=== PATIENT | male | born 1960 | race Caucasian/White ===

== ENCOUNTER 2017-04-22 20:42 | Emergency (ER) | payer OTHER ==
[~2017-04-22] VITALS: Ht 167.6 cm; Wt 140.6 kg
[~2017-04-22 20:42] MED LIST: ASPIRIN325; MECLIZINE 25 MG25 M1 PO
[2017-04-22 20:56] LABS: ABSOLUTE EOSINOPHILS 0.1 thou/uL (0.0-0.7); ABSOLUTE LYMPHOCYTES 1.6 thou/uL (0.8-5.3); ABSOLUTE MONOCYTES 0.8 thou/uL (0.0-1.2); ABSOLUTE NEUTROPHILS 5.4 thou/uL (1.6-8.1); BASOPHILS 0.6 %; EOSINOPHILS 1.1 %; HEMATOCRIT 45.5 % (42.0-52.0); HEMOGLOBIN 15.8 gm/dL (14.0-18.0); LYMPHOCYTES 20.2 %; MCHC 34.6 g/dL (28.0-37.0); MCV 89.7 fL (80.0-100.0); MONOCYTES 10.4 %; MPV 7.8 fl. (7.2-11.1); NUCLEATED RBCS 0 /100WBC; PLATELET COUNT* 199 thou/uL (150-400); POLYS 67.7 %; RBC 5.08 mil/uL (4.50-6.00); RDW-CV 14.6 % (10.5-14.5); WBC 7.9 thou/uL (4.0-11.0)
[2017-04-22 21:06] LABS: ANION GAP 8 mmol/L (7-16); BUN 14 mg/dL (7-18); CALCIUM 7.8 mg/dL (8.5-10.1); CHLORIDE 102 mmol/L (98-107); CO2 28 mmol/L (21-32); CREATININE 1.1 mg/dL (0.6-1.3); GLUCOSE 193 mg/dL (70-99); POTASSIUM 3.5 mmol/L (3.5-5.1); SODIUM 138 mmol/L (136-145)
[2017-04-22 21:16] LABS: ALBUMIN 3.2 g/dL (3.4-5.0); ALKALINE PHOSPHATASE 64 U/L (46-116); NT-PRO BRAIN NAT PEPTIDE 22 pg/mL (<300); SGOT 19 U/L (15-37); SGPT 31 U/L (30-65); TOTAL BILIRUBIN 0.5 mg/dL (<0.1-1.0); TROPONIN-I LEVEL <0.06 ng/mL (<0.06)
[2017-04-22 22:07] LABS: INFLUENZA A ANTIGEN None Detected (None Detect); INFLUENZA B ANTIGEN None Detected (None Detect)
[2017-04-22] MEDS ORDERED: ZOFRAN ODT4 MG PO (22:40)
[2017-04-22 23:51] VITALS: BP 100/53
[2017-04-23 16:11] LABS: GLYCOHEMOGLOBIN (HGB A1C) 9.3 % (4.8-5.6)
--- NOTE | 2017-04-23 16:49 | EKG ---
[place] [address] ELECTROCARDIOGRAM REPORT Name: JOSEPHINE BSOCH [facility] [id number] Admission: 04/22/17 Attend Phys: Discharge: 04/22/17 Date of : 62 Report #: [id number] THIS REPORT FOR: //name// [facility] ED Test Date: 2017-04-22 Test Time: 21:44:36 Pat Name: JOSEPHINE BOSCH Department: Room: Gender: M Spare Person: : 1960 Requested By: Kathy Barney Order Number: [id number] MD: Yaw Su Measurements Intervals [place] Rate: 84 P: 39 IN: 196 QRS: -32 QRSD: 98 T: 28 QT: 346 QTc: 409 Interpretive Statements Sinus rhythm Left axis deviation septal infarct, old Compared to ECG 02/06/2010 17:01:51 Left-axis deviation now present Myocardial infarct finding now present Electronically Signed On 04-23-2017 16:49:04 CDT by Yaw Su [email or web address] <ELECTRONICALLY SIGNED> By: Yaw Su MD, [facility] 04/23/17 [id number] [id number] Yaw Su MD, FAC /EPI
== END 2017-04-22 23:52 | disposition home or self-care (01) ==
LOC: M.ERS 20:42
PROVIDERS: Emergency Medicine
DX: R11.2 Nausea with vomiting, unspecified (principal); R19.7 Diarrhea, unspecified; E11.9 Type 2 diabetes mellitus without complications; R61 Generalized hyperhidrosis